=== PATIENT | female | born 1955 | race Caucasian/White ===

== ENCOUNTER 2019-09-17 22:29 | Emergency (ER) | payer MEDICARE ==
[~2019-09-17] VITALS: Ht 167.6 cm; Wt 100.0 kg
--- NOTE | 2019-09-17 23:05 | NUR ---
Pt provided water for po challenge and to obtain ua. Pt aware of need of urine sample.
[2019-09-17] MEDS ORDERED: ALPR0.5T6 PO (23:19)
[2019-09-17] MEDS ORDERED: HYDR50CA2 PO (23:19)
[2019-09-17] MEDS ORDERED: METF500T17 PO (23:19)
[2019-09-17] MEDS ORDERED: FLUO20TA25 PO (23:19)
[2019-09-17] MEDS ORDERED: CYCL-259 PO (23:19)
[2019-09-17] MEDS ORDERED: NAPR-685 PO (23:19)
[2019-09-17] MEDS ORDERED: GUAI600T31 PO (23:19)
[2019-09-17 23:28] LABS: BASOPHILS # (AUTO) 0.12 x10^3/uL (0-0.1); BASOPHILS % (AUTO) 1 % (0-1); EOSINOPHILS # (AUTO) 0.02 x10^3/uL (0-0.4); EOSINOPHILS % (AUTO) 0 % (1-7); LYMPHOCYTES # (AUTO) 1.91 x10^3/uL (1-3.4); LYMPHOCYTES % (AUTO) 13 % (22-44); MD NO; MEAN CORPUSCULAR HEMOGLOBIN 30.7 pg (27.0-34.8); MEAN CORPUSCULAR HGB CONC 33.6 g/dL (32.4-35.8); MEAN CORPUSCULAR VOLUME 91.6 fL (80-100); MEAN PLATELET VOLUME 7.2 fL (7.4-10.4); MONOCYTES # (AUTO) 1.26 x10^3/uL (0.2-0.8); MONOCYTES % (AUTO) 9 % (2-9); NEUTROPHILS # (AUTO) 11.15 x10^3/uL (1.8-6.8); NEUTROPHILS % (AUTO) 77 % (42-75); PLATELET COUNT 460 x10^3/uL (130-400); RED BLOOD COUNT 4.68 x10^6/uL (3.82-5.3); RED CELL DISTRIBUTION WIDTH 14.1 % (9.6-15.2)
[2019-09-17 23:33] LABS: ALANINE AMINOTRANSFERASE 25 U/L (12-78); ALBUMIN 3.5 g/dL (3.4-5.0); ANION GAP 6 mmol/L (5-15); CALCIUM 9.1 mg/dL (8.5-10.1); CHLORIDE 108 mmol/L (98-107); CREATININE 0.73 mg/dL (0.55-1.02); SALICYLATE LEVEL 4.3 mg/dL (2.8-20.0)
[2019-09-17 23:35] LABS: ALKALINE PHOSPHATASE 77 U/L (45-117); BILIRUBIN,TOTAL 0.5 mg/dL (0.2-1.0); TOTAL PROTEIN 8.4 g/dL (6.4-8.2)
--- NOTE | 2019-09-17 23:51 | NUR ---
Pt ambulated to restroom with steady gait, urine sample collected and sent to lab.
[2019-09-17 23:52] VITALS: BP 105/64
[2019-09-18] LABS: AMPHETAMINE SCREEN, URINE Negative (Negative); BARBITURATE SCREEN, URINE Negative (Negative); BENZODIAZEPINE SCREEN, URINE Positive (Negative); CANNABINOID SCREEN, URINE Positive (Negative); COCAINE SCREEN, URINE Negative (Negative); METHADONE SCREEN, URINE Negative (Negative); OPIATE SCREEN, URINE Negative (Negative)
== END 2019-09-18 01:56 | disposition home or self-care (01) ==
LOC: ED 23:59
DX: F12.922 Cannabis use, unspecified with intoxication with perceptual disturbance (principal); G92 Toxic encephalopathy; F12.10 Cannabis abuse, uncomplicated; I10 Essential (primary) hypertension; E11.9 Type 2 diabetes mellitus without complications
CPT/HCPCS: 36415; 80053; 80307; 85025; 99283

== ENCOUNTER 2019-11-13 20:41 | Emergency (ER) | payer MEDICARE, BC ==
[~2019-11-13] VITALS: Ht 167.6 cm; Wt 90.0 kg
[~2019-11-13 20:41] MED LIST: ALPR0.5T6 PO; CYCL-259 PO; FLUO20TA25 PO; GUAI600T31 PO; HYDR50CA2 PO; METF500T17 PO; NAPR-685 PO
--- NOTE | 2019-11-13 21:00 | NUR ---
PT PERSONAL BELONGING REMOVED FROM ROOM (2 BAGS) AND LOCKED IN SECURITY LOCKER, ROOM SECURED, URINE SAMPLE COLLECTED AND TAKEN TO LAB
--- NOTE | 2019-11-13 21:15 | NUR ---
THIS IS A 64 YO F BROUGHT IN [place] [facility]. PT IS ON LEGAL 1999 DUE TO SI WHILE IN [facility]. DENIES SI AT THIS TIME. DENIES HOMICIDAL THOUGHTS AT THIS TIME. PT STATES SHE ONLY SAID SHE WANTED TO KILL HERSELF TO GET OUT OF THE "CEMENT BOX". VS STABLE. NADN. PT COOPERATIVE. AWAITING ORDERS.
--- NOTE | 2019-11-13 21:15 | NUR ---
Cristela france in ED - 11/13/19 at 2115 by PEYTON THIS IS A 64 YO F BROUGHT IN FROM [place]. PT IS ON LEGAL 200
--- NOTE | 2019-11-13 21:22 | NUR ---
called psych director process to try and request consult
[2019-11-13 21:40] LABS: BASOPHILS # (AUTO) 0.08 x10^3/uL (0-0.1); BASOPHILS % (AUTO) 1 % (0-1); EOSINOPHILS # (AUTO) 0.05 x10^3/uL (0-0.4); EOSINOPHILS % (AUTO) 0 % (1-7); LYMPHOCYTES # (AUTO) 2.48 x10^3/uL (1-3.4); LYMPHOCYTES % (AUTO) 16 % (22-44); MD NO; MEAN CORPUSCULAR HEMOGLOBIN 31.1 pg (27.0-34.8); MEAN CORPUSCULAR HGB CONC 33.5 g/dL (32.4-35.8); MEAN CORPUSCULAR VOLUME 92.7 fL (80-100); MEAN PLATELET VOLUME 7.6 fL (7.4-10.4); MONOCYTES # (AUTO) 1.43 x10^3/uL (0.2-0.8); MONOCYTES % (AUTO) 9 % (2-9); NEUTROPHILS # (AUTO) 11.96 x10^3/uL (1.8-6.8); NEUTROPHILS % (AUTO) 75 % (42-75); PLATELET COUNT 402 x10^3/uL (130-400); RED BLOOD COUNT 4.69 x10^6/uL (3.82-5.3); RED CELL DISTRIBUTION WIDTH 14.3 % (9.6-15.2)
[2019-11-13 21:46] LABS: AMPHETAMINE SCREEN, URINE Negative (Negative); BARBITURATE SCREEN, URINE Negative (Negative); BENZODIAZEPINE SCREEN, URINE Positive (Negative); CANNABINOID SCREEN, URINE Positive (Negative); COCAINE SCREEN, URINE Negative (Negative); METHADONE SCREEN, URINE Negative (Negative); OPIATE SCREEN, URINE Negative (Negative)
[2019-11-13 21:48] LABS: ANION GAP 9 mmol/L (5-15); CALCIUM 9.4 mg/dL (8.5-10.1); CHLORIDE 106 mmol/L (98-107); CREATININE 0.74 mg/dL (0.55-1.02); SALICYLATE LEVEL 3.4 mg/dL (2.8-20.0)
--- NOTE | 2019-11-13 22:00 | NUR ---
Report Stephanie ASHER. Pt laying in [facility], danielter at [facility] for continous monitoring.
[2019-11-13] MEDS ORDERED: ACETAMINOPHEN 325 MG TABLET ONE (22:18)
[2019-11-13] MEDS ORDERED: METF1000 PO (22:20)
[2019-11-13] MEDS ORDERED: ACETAMINOPHEN 325 MG TABLET PO ONE (22:30)
--- NOTE | 2019-11-13 22:32 | NUR ---
Pt medicated per MAR, pt has labile mood and screaming demanding pain medication.
[2019-11-13 22:48] LABS: MICROSCOPIC INDICATED
[2019-11-13 22:58] LABS: CULTURE INDICATED? YES
--- NOTE | 2019-11-13 22:58 | NUR ---
pt resting in bed, removed gown and blankets and placed them on floor, discussed gown and blanket with pt. pt stated " i want to start all over on a clean slate", other rn provided pt with clean blanket and gown, pt refusing to put gown on and placed gown and blanket under her head. room remains secured, sitter at doorway for continous monitoring
--- NOTE | 2019-11-13 23:51 | NUR ---
PT UP IN ROOM WALKING AROUND NAKED, TRIED TO ENCOURAGE PT TO PUT GOWN ON, PT REFUSING GOWN OR BLANKET, ERP AWARE
[2019-11-13] MEDS ORDERED: ZIPRASIDONE 20 MG INJ IM ONE (23:57)
--- NOTE | 2019-11-14 00:03 | NUR ---
NOTIFIED BY SITTER THAT PT CONTINOUS TO DANCE NAKED AT DOORWAY OF ROOM, PT OPENED DOOR AND WAS THROWING THINGS AT HIM (STYROFOAM CUPS) TO GET HIS ATTENTION, PT BEHAVIOR ESCULATED AND STARTED SCREAMING AND BANGING ON ROOM AND GARAGE DOORS, SECURITY CALLED, ERP UPDATED, ORDER RECIEVED FOR LIZZ. PT MEDICATED AND RESTRAINTS APPLIED BY SECURITY. SITTER REMAINS AT DOORWAY FOR CONTINOUS MONITORING
[2019-11-14] MEDS ORDERED: LORazepam 2 MG/ML, 1ML ONE ×2 (00:35→05:45)
--- NOTE | 2019-11-14 00:40 | NUR ---
Pt medicated per MAR.
[2019-11-14] MEDS ORDERED: LORazepam 2 MG/ML, 1ML IM ONE (01:00)
--- NOTE | 2019-11-14 01:03 | NUR ---
NOTED PT SPO2 84% R/A, APPLIED 3L N/C SPO2-98%
--- NOTE | 2019-11-14 01:08 | NUR ---
soc on telephone, updated on pt status, pt currently in restraints
[2019-11-14] MEDS ORDERED: ZIPRASIDONE 20 MG INJ IM ONE ×5 (01:17→03:00)
--- NOTE | 2019-11-14 01:20 | NUR ---
Pt agitated and screaming managed to pull cords off the vitals monitor and chewed off pulse oximeter, security called and restraints readjusted. ERP notified, pt medicated per DEC.
--- NOTE | 2019-11-14 02:01 | NUR ---
PATIENT PLACED ON HOLD. 3E TO LOOK AT PATIENT AND GET BACK TO US WHETHER THEY WOULD LIKE TO ADMIT PATIENT.
--- NOTE | 2019-11-14 02:08 | NUR ---
PER 3E [employer] UNABLE TO GET INSURANCE AUTH UNTIL MORNING. PACKET TO BE FAXED TO FACILITIES. PATIENT WITH MEDICARE AND [employer] BLUE CROSS CARD SO PACKET FAXED TO ALL FACILITIES.
--- NOTE | 2019-11-14 02:20 | NUR ---
Pt laying in gurney in no apparant distress, sitter at bedside.
--- NOTE | 2019-11-14 02:52 | NUR ---
Pt agitated has removed audio production manager leads, medicated with Chitra mortensen MD order . Addendum: 11/14/19 at 0257 by CHAVA SITTER AT DOORWAY FOR CONTINOUS MONITORING
--- NOTE | 2019-11-14 03:16 | NUR ---
Pt became increasingly agitated, screaming at staff and pulling off vitals equipment. Security called for restraints readjustment and assistance. Pt kicking and grabbing at staff and attempting to bite, she also attempted to bang her head on side rail of gurney.
--- NOTE | 2019-11-14 03:56 | NUR ---
Call from Pamela at [facility], per Pamela pt cannot be accepted at [facility] until restraints have been off for 24hours. Addendum: 11/14/19 at 0405 by KEVON Call back from Pamela at [facility] stating pt maybe accepted after restraints have been off for 12hrs.
--- NOTE | 2019-11-14 04:10 | NUR ---
RACHELL FROM [facility] ON TELEPHONE STATED PT NEEDS TO BE OUT OF RESTRAINTS X4 HOURS FOR ACCEPTANCE, THEY WILL CALL BACK AT 8AM AND RECHECK PT'S STATUS
[2019-11-14] MEDS ORDERED: DIPHENHYDRAMINE 50 MG/ML, 1ML ONE (04:27)
[2019-11-14] MEDS ORDERED: DIPHENHYDRAMINE 50 MG/ML, 1ML IM ONE (04:30)
--- NOTE | 2019-11-14 04:34 | NUR ---
Pt continues to scream and yell at staff, ERP informed. Sitter at doorway for continous monitoring.
--- NOTE | 2019-11-14 05:25 | NUR ---
Pt intermittently sleeping however wakes up yelling and screaming at staff, sitter at bedside. Addendum: 11/14/19 at 0557 by CHAVA Amendment undone in EDM - 11/14/19 at 0559 by CHAVA SECURITY AT BEDSIDE TO REPOSITION RESTRAINTS, SKIN ASSESSED, PT YELLING INAPPROPRIATE LANGUAGE AT STAFF AND ATTEMPTING TO HIT AND BITE STAFF. Addendum: 11/14/19 at 0559 by CHAVA LATE ENTRY 05-SECURITY AT BEDSIDE TO REPOSITION RESTRAINTS, SKIN ASSESSED, PT YELLING INAPPROPRIATE LANGUAGE AT STAFF AND ATTEMPTING TO HIT AND BITE STAFF.
[2019-11-14] MEDS ORDERED: LORazepam 2 MG/ML, 1ML IM STA (05:48)
--- NOTE | 2019-11-14 05:51 | NUR ---
PT CONTINUES TO BE AGGRESSIVE TOWARDS STAFF, ATTEMPTING TO SCRATCH AND BITE THE STAFF, FREQUENTLY REAPPLIED MONITORS, PT BITES OFF O2 N/C, FREQUENTLY YELLS OUT "YOUR NOT DOING ANYTHING MEDICAL TO ME", REFUSES TO KEEP GOWN OR BLANKET ON, PT ALSO FREQUENTLY USING IN APPROPRIATE LANGAGE YELLING "YOU FUCKING BITCH", ERP UPDATED AND PT MEDICATED PER MAR
--- NOTE | 2019-11-14 06:15 | NUR ---
Pt in cristofer wiggling around cursing at staff that walk by and enter room, she has threaten staff by stating " I am going to hurt you, you bitch".
--- NOTE | 2019-11-14 06:31 | NUR ---
reapplied pt's gown and placed sheet over her, discussed with pt that people are walking in halls and they can see her, pt stated to this rn "i don't care get the fuck out of here", pt wiggled herself out out gown
--- NOTE | 2019-11-14 06:56 | NUR ---
Assumed c/o pt from [facility]. Pt is in & BA locked restraints. Sitter outside door 1:1 observation. Continuous pulse oximetry in place.
--- NOTE | 2019-11-14 06:56 | NUR ---
REPORT GIVEN TO [facility]
--- NOTE | 2019-11-14 07:42 | NUR ---
Pt is awake, states she is hungry, also wants something to drink and her L arm is hurting due to restraint.
[2019-11-14 07:45] VITALS: BP 109/57
--- NOTE | 2019-11-14 07:56 | NUR ---
Pt out of restraints. Warm blanket, water provided. Falls back asleep, continuous pulse oximetry remains IP. Breakfast tray ordered.
--- NOTE | 2019-11-14 08:28 | NUR ---
Sleeping, sitter remains outside of room .
--- NOTE | 2019-11-14 08:55 | NUR ---
Pt sitting up in bed, eating breakfast tray. Calm & cooperative at this time.
--- NOTE | 2019-11-14 09:55 | NUR ---
Sleeping, remains on cont. pulse oximetry, no changes at this time.
--- NOTE | 2019-11-14 11:01 | NUR ---
Animal control called at pt's request to check on her dogs. Per animal control, her two dogs are in their care & they will send an officer down to speak with pt & let her fill out paperwork. Pt updated.
--- NOTE | 2019-11-14 11:30 | NUR ---
Pt states she took herself off of all of her antipsychotics due to disliking side effects. Isn't sure why but [place]. Understands that she is on a legal hold and plan of care. Waiting on meal tray, sitter remains outside doorway
--- NOTE | 2019-11-14 11:54 | NUR ---
RECEIVED REPORT FROM LARY ASHER. ASSUMING CARE AT THIS TIME. PT RESTING COMFORTABLY ON GURNEY. ROOM SECURE. PT IN DIRECT SIGHT OF SITTER.
--- NOTE | 2019-11-14 13:29 | NUR ---
PT SLEEPING ON GURBETHEL. ROOM SECURE. PT IN DIRECT SIGHT OF SITTER.
--- NOTE | 2019-11-14 14:40 | NUR ---
ANIMAL CONTROL AT BEDSIDE TO GO OVER CARE OF PT TWO DOGS.
--- NOTE | 2019-11-14 15:04 | NUR ---
SPOKE WITH ANDREA AT [facility]. ANDREA WILL GET AN ACCEPTING PROVIDER AND CALL BACK WITH APPROVAL.
[2019-11-14] MEDS ORDERED: LORazepam 1MG TABLET ONE (15:25)
[2019-11-14] MEDS ORDERED: LORazepam 1MG TABLET PO ONE (15:30)
--- NOTE | 2019-11-14 15:30 | NUR ---
PT BECOMING AGITATED AND WANTING TO LEAVE AMA. EXPLAINED TO PT SHE IS ON A LEGAL HOLD AT THIS TIME. PT MEDICATED PER DEC.
--- NOTE | 2019-11-14 18:46 | NUR ---
[facility] ARRIVED TO TAKE PT TO [facility]. 2 BAGS OF PT BELONGINGS RETURNED AND TAKEN WITH [facility]. PT AMBULATED TO AMBULANCE WITH [facility] AND [facility].
== END 2019-11-14 18:50 ==
LOC: ED 21:22
DX: F30.2 Manic episode, severe with psychotic symptoms (principal); I10 Essential (primary) hypertension; E11.9 Type 2 diabetes mellitus without complications; J44.9 Chronic obstructive pulmonary disease, unspecified
CPT/HCPCS: 36415; 80048; 80307; 81001; 82040; 85025; 87086; 96372; 99285; J1200; J2060; J3486